=== PATIENT | male | born 1995 | race Hispanic/Latino ===

== ENCOUNTER 2025-08-10 04:11 | Emergency (ER) | payer OTHER ==
[2025-08-10] MEDS ORDERED: Lidocaine 1% PF 5 ML VIAL ONE (04:52)
[2025-08-10] MEDS ORDERED: HYDROcodone/Acetaminophen 5/325 mg Tablet ONE (05:07)
[2025-08-10] MEDS ORDERED: Ibuprofen 800 MG TAB ONE (05:08)
[2025-08-10] MEDS ORDERED: Bacitracin 1 PK ONE (05:16)
== END 2025-08-10 06:20 | disposition home or self-care (01) ==
LOC: MADERS 04:11
DX: S62.660B Nondisplaced fracture of distal phalanx of right index finger, initial encounter for open fracture (principal); F17.210 Nicotine dependence, cigarettes, uncomplicated; W20.8XXA Other cause of strike by thrown, projected or falling object, initial encounter
CPT/HCPCS: 12002; 99283

== ENCOUNTER 2025-08-17 12:38 | Emergency (ER) | payer SELFPAY | END 2025-08-17 13:05 | disposition home or self-care (01) | LOC: MADERS 12:38 | DX: S61.210D Laceration without foreign body of right index finger without damage to nail, subsequent encounter (principal); F17.210 Nicotine dependence, cigarettes, uncomplicated; Z75.8 Other problems related to medical facilities and other health care ==